=== PATIENT | female | born 1950 | race Two or more races ===

== ENCOUNTER 2024-04-30 10:17 | Emergency (ER) | payer OTHER ==
[~2024-04-30] VITALS: Ht 162.6 cm; Wt 89.4 kg
[2024-04-30] MEDS ORDERED: LEVOTHYROXINE25 MCG (10:35)
[2024-04-30] MEDS ORDERED: COZAAR25 MG (10:35)
[2024-04-30] MEDS ORDERED: KETOROLAC TROMETHAMINE 30 MG VIAL IU STA (11:54)
[2024-04-30] MEDS ORDERED: DEXAMETHASONE SODIUM PHOSPHATE 4 MG/ML VIAL IV STA (11:55)
[2024-04-30] MEDS ORDERED: ORPHENADRINE CITRATE 30 MG/ML AMPUL IV STA (11:58)
== END 2024-04-30 14:41 | disposition home or self-care (01) ==
LOC: ER 10:17
DX: M54.50 Low back pain, unspecified (principal); I10 Essential (primary) hypertension
CPT/HCPCS: 96365; 99282; J1100; J1885; J2360

== ENCOUNTER 2024-09-24 11:30 | Day surgery (SDC) | payer OTHER ==
[~2024-09-24 11:30] MED LIST: COZAAR25 MG; CYMBALTA; LEVOTHYROXINE25 MCG; MAGNESIUM250 M1; NEUROTIN 400MG; VITAMIN; ZINC
[2024-09-24] MEDS ORDERED: LIDOCAINE HCL 1% 20 ML VIAL IJ ONE (16:30)
[2024-09-24] MEDS ORDERED: DEXAMETHASONE SODIUM PHOSPHATE 4 MG/ML VIAL IJ ONE (16:30)
[2024-09-24] MEDS ORDERED: IOHEXOL 240 mgI/ML 100ML BOTT IV ONE (16:30)
[2024-09-24] MEDS ORDERED: BUPIVACAINE HCL 30 ML VIAL IJ ONE (16:30)
== END 2024-09-24 18:25 | disposition home or self-care (01) ==
LOC: CIR.AMB 11:30
PROVIDERS: ATTEND Anesthesiology Pain Medicine
DX: M48.061 Spinal stenosis, lumbar region without neurogenic claudication (principal); M51.26 Other intervertebral disc displacement, lumbar region; I10 Essential (primary) hypertension